=== PATIENT | male | born 1975 | race Caucasian/White ===

== ENCOUNTER 2024-10-10 16:07 | Emergency (ER) | payer OTHER ==
[~2024-10-10] VITALS: Ht 182.9 cm; Wt 140.9 kg
[2024-10-10 17:28] LABS: BASO # 0.07 K/mm3 (0.02-0.10); EOS # 0.08 K/mm3 (0.04-0.40); EOS % 1.2 % (0.0-4.0); HEMATOCRIT 42.8 % (42.0-52.0); HEMOGLOBIN 14.6 g/dL (13.5-18.0); LYMPH# 2.49 K/mm3 (1.50-4.00); MEAN CELL VOLUME 78 fl (78-100); MEAN CORPUSCULAR HEMOGLOBIN 27 pg (27-31); MEAN CORPUSCULAR HGB CONC 34 g/dL (33-37); MEAN PLATELET VOLUME 10.8 fl (7.4-10.4); MONO # 0.48 K/mm3 (0.20-0.80); NEU # 3.63 K/mm3 (1.40-6.50); PLATELET COUNT 203 K/mm3 (130-400); RED BLOOD COUNT 5.48 M/mm3 (4.20-5.60); RED CELL DISTRIBUTION WIDTH 13.9 % (11.5-14.5); WHITE BLOOD COUNT 6.8 K/mm3 (4.8-10.8)
[2024-10-10 17:29] LABS: ALBUMIN 4.4 g/dL (3.5-5.0)
[2024-10-10 17:30] LABS: CALCIUM 11.2 mg/dL (8.3-10.5)
[2024-10-10 17:33] LABS: TOTAL BILIRUBIN 0.5 mg/dL (0.2-1.2)
[2024-10-10 17:41] LABS: URINE APPEARANCE CLEAR (CLEAR); URINE BILIRUBIN 1+ (NEGATIVE); URINE BLOOD NEGATIVE (NEGATIVE); URINE COLOR YELLOW (YELLOW); URINE GLUCOSE 3+ (NEGATIVE); URINE KETONE 1+ (NEGATIVE); URINE LEUKOCYTE ESTERASE NEGATIVE (NEGATIVE); URINE NITRATE NEGATIVE (NEGATIVE); URINE PROTEIN(semi-quant) NEGATIVE (NEGATIVE)
[2024-10-10 17:42] LABS: URINE WBC 0-1 /hpf (0-3)
[2024-10-10] MEDS ORDERED: NS 500 ML IV SCH (18:30)
[2024-10-10 20:15] VITALS: BP 144/88
== END 2024-10-10 21:04 | disposition home or self-care (01) ==
LOC: ED 16:07
PROVIDERS: Nurse Practitioner
DX: R25.2 Cramp and spasm (principal); E11.65 Type 2 diabetes mellitus with hyperglycemia; E66.9 Obesity, unspecified; Z91.148 Patient's other noncompliance with medication regimen for other reason; Z68.41 Body mass index [BMI] 40.0-44.9, adult
CPT/HCPCS: J7040